=== PATIENT | female | born 1960 | race Caucasian/White ===

== ENCOUNTER → 2020-01-05 | Outpatient (CLI) | payer OTHER ==
[2015-11-03 10:40] VITALS: BP 137/77
[~2020-01-05] MED LIST: FAMO20TA5 PO; MECL-75 PO; MULT-245 PO; ONDA4TAB10 PO; POTA20TA4 PO; TRIA1TAB2 PO; VERA180C2 PO; maxide; verapamil
== END | disposition home or self-care (01) ==
LOC: LAB 11:26
PROVIDERS: ATTEND Registered Nurse
DX: Z03.818 Encounter for observation for suspected exposure to other biological agents ruled out (principal)
CPT/HCPCS: 87635

== ENCOUNTER → 2020-01-09 | Day surgery (SDC) | payer OTHER ==
[~2020-01-09] MED LIST changes: +IV RINGERS SOLUTION,LACTATED 1,000 ML IV SCH; +ONDANSETRON PF 4 MG/2 ML VIAL. IV PRN; +PROPOFOL 10,000 MCG/ML (20ML) VIAL IV ONE
[2020-01-09 09:44] VITALS: BP 153/75
== END ==
LOC: SURG 07:06
PROVIDERS: ATTEND Emergency Medicine
DX: Z12.11 Encounter for screening for malignant neoplasm of colon (principal); K63.5 Polyp of colon; K21.9 Gastro-esophageal reflux disease without esophagitis; I10 Essential (primary) hypertension; Z85.828 Personal history of other malignant neoplasm of skin; Z98.890 Other specified postprocedural states; Z98.51 Tubal ligation status
CPT/HCPCS: 45380; J2704; J7120